=== PATIENT | male | born 1990 | race Caucasian/White ===

== ENCOUNTER 2017-02-27 13:30 | Emergency (ER) | payer MEDICAID ==
[~2017-02-27] VITALS: Ht 162.6 cm; Wt 79.9 kg
[2017-02-27 13:41] VITALS: Ht 162.6 cm; Wt 79.9 kg
--- NOTE | 2017-02-27 14:05 | ERD ---
ER Documentation Chief Complaint Chief Complaint Pt presents with R back and R leg pain after fall from roof, apx 12 feet. (NICOLLE ANGUIANO PA-C) HPI Otherwise healthy 26-year-old male presenting 8 hour status post fall from height onto his back. Patient claims he hit a brick ledge on his way down. Denies head trauma, neck pain, mid back pain, or injury to other areas of the body. Has not taken any medications to relieve symptoms. States he has mild numbness on the outer right lower extremity. Denies loss of range of motion in his extremities. Back pain 12/07. Patient has no other complaints and describes no other associated manifestations. (NICOLLE ANGUIANO PA-C) ROS All systems reviewed and are negative except as per history of present illness. (NICOLLE ANGUIANO PA-C) Medications Home Meds Active Scripts Hydrocodone/Acetaminophen (Racine 5-325 Tablet) 1 Each Tablet, 1 TAB PO Q6H Y for PAIN, #20 TAB Prov:NICOLLE ANGUIANO PA-C 02/27/17 Reported Medications [None] No Conflict Check 03/30/10 Allergies Allergies: Coded Allergies: No Known Allergies (Verified Allergy, Mild, 03/30/10) PMhx/Soc History of Surgery: No Anesthesia Reaction: No Hx Neurological Disorder: No Hx Respiratory Disorders: No Hx Cardiac Disorders: No Hx Psychiatric Problems: No Hx Miscellaneous Medical Probl: No Hx Alcohol Use: No Hx Substance Use: No Hx Tobacco Use: No (NICOLLE ANGUIANO PA-C) Physical Exam Vitals Vital Signs Date Time Temp Pulse Resp B/P Pulse Ox O2 Delivery O2 Flow Rate FiO2 02/27/17 13:41 97.9 83 20 131/75 98 (FARRUKH SALAZAR MD) Physical Exam Const: Well-appearing. Mild distress. Back: No midline, flank or CVA tenderness. Negative straight leg raise. Tenderness to the right of the spine. Range of motion decreased secondary to pain. Neur: No saddle anesthesia. Neurovascularly intact bilaterally in all nerve distributions. Patella reflex 2+ bilaterally. Ankle reflex unobtainable. Eyes: Non-injected; No discharge. EOMI and ALYCE bilaterally. Neck: No tenderness. No cervical lymphadenopathy, or masses palpated. Supple ~ No meningismus. Pulm: Good air movement in upper and lower respiratory tracts. Clear to auscultation bilaterally. No dyspnea or stridor. Cardio: Regular rate and rhythm; No murmurs, gallops or rubs auscultated. Radia pulses 2+ bilaterally. No cyanosis noted. Capillary refill less than 2 seconds. Abd: Normal bowel sounds. No palpable mass. MS: Normal motor strength, normal tone with gross examination. Skin: No petechiae or rashes. Good turgor. Psych: Normal Mood and Affect. (NICOLLE ANGUIANO PA-C) Results 24 hrs Current Medications Medications (Trade) Dose Ordered Sig/Fly Route PRN Reason Start Time Stop Time Status Last Admin Dose Admin Acetaminophen/ Hydrocodone Bitart (Racine (5/325)) 1 tab ONCE ONCE PO 02/27/17 14:30 02/27/17 14:31 DC 02/27/17 14:14 Morphine Sulfate (morphine) 4 mg ONCE STAT IV 02/27/17 15:59 02/27/17 16:00 DC 02/27/17 16:18 Ondansetron HCl (Zofran Odt) 4 mg ONCE STAT ODT 02/27/17 15:59 02/27/17 16:00 DC 02/27/17 16:19 (FARRUKH SALAZAR MD) Procedures/MDM Otherwise healthy 26-year-old male presents 8 hours status post a fall from height. Approximately [address] requirement [address] down. Complains of lower back pain with possible right numbness. Physical exam shows neurovascularly intact. CT was obtained of the lower lumbar spine to rule out bony pathology. CT was read by the radiologist given the following impression: FINDINGS: Acute mildly displaced fractures of the right transverse processes of T12, L1, L2, and 3 vertebral bodies are noted. There is maintenance of normal lumbar lordosis. No lumbar spine subluxation is noted. The vertebral body heights are preserved. There is no significant paravertebral soft tissues swelling or mass. T12-L1: The disk is normal in height. No significant disk bulge or protrusion is seen. The central canal and neural foramina appear adequately patent. L1-L2: The disk is normal in height. No significant disk bulge or protrusion is seen. The central canal and neural foramina appear adequately patent. L2-L3: The disk is normal in height. Mild diffuse disc bulge is seen. The central canal and neural foramina appear adequately patent. L3-L4: The disk is normal in height. Mild diffuse disc bulge is seen. The central canal and neural foramina appear adequately patent. L4-L5: The disk is normal in height. Mild central disc protrusion is seen. Mild bilateral facet arthropathy is noted. Mild to moderate left and mild right foraminal narrowing is noted. The central canal appears adequately patent. L5-S1: The disk is normal in height. Mild diffuse disc bulge is seen. Mild bilateral facet arthropathy is noted. Mild to moderate right and mild left foraminal narrowing is noted. The central canal appears adequately patent. Bilateral sacroiliac joints demonstrate subchondral sclerosis with prominent osteophytes on the right. IMPRESSION: 1. Acute mildly displaced fractures of the right transverse processes of T12, L1, L2, and 3 vertebral bodies. 2. No acute lumbar spine compression fracture or subluxation. 3. Mild to moderate bilateral foraminal narrowing at L4-5 and L5-S1. X-ray was obtained of the chest. Read by the radiologist given the following impression: Unremarkable Presents of the case to my attending. Dr. Rojas with neurosurgery was consulted. Patient handed off to carry Gulshan BRAGG (NICOLLE ANGUIANO PA-C) Case discussed with Dr. Farmer, neurosurgery, who reviewed the studies.. Patient presents with signs of transverse process fractures of lumbar spine after falling from a roof and hitting a wall. Does not see any evidence of vertebral body fractures. Patient has no current neurologic deficits, signs of additional injury. Patient patient's treatment is nonoperative according to neurosurgery. Patient is placed in a lumbar support will be treated for pain at home with instructions for primary care follow-up, outpatient specialty follow-up and return precautions. (FARRUKH SALAZAR MD) Departure Diagnosis: Primary Impression: Injury of back Encounter type: initial encounter Qualified Code: S39.92XA - Injury of back , initial encounter Additional Impressions: Back pain Back pain location: low back pain Chronicity: acute Back pain laterality: right Sciatica presence: without sciatica Qualified Code: M54.5 - Acute right-sided low back pain without sciatica Fall from height of greater than 3 feet Condition: Stable NICOLLE ANGUIANO PA-C Feb 27, 2017 14:05 FARRUKH SALAZAR MD Feb 27, 2017 16:46
[2017-02-27] MEDS ORDERED: HYDROCODONE/APAP (5/325) TAB PO ONE (14:30)
--- NOTE | 2017-02-27 14:41 | RADRPT ---
PROCEDURE: Chest x-ray CLINICAL INDICATION: Chest pain TECHNIQUE: Chest single view COMPARISON: None FINDINGS: The heart is normal in size. The pulmonary vessels are normal in caliber. The lungs are clear. Th e costophrenic angles are sharp. The visualized bony thorax is unremarkable. IMPRESSION: No acute cardiopulmonary disease. No evidence of pneumothorax RPTAT: HH .Chance Kirk MD, Date Time Electronically viewed and signed by .Chance Kirk MD, MD on 02/27/2017 14:41 .W/
[2017-02-27] MEDS ORDERED: HYDR-906 PO (15:10)
--- NOTE | 2017-02-27 15:30 | RADRPT ---
PROCEDURE: CT Lumbar Spine. CLINICAL INDICATION: Fall. Low back pain TECHNIQUE: The study was performed on a multidetector CT scanner. Volumetric data was obtained th rough the lumbar spine and reformatted in the axial plane. Sagittal and coronal reformations were cr eated from the raw axial data. One or more the following does reduction techniques were utilized: Au tomated exposure control, adjustment of the mA/ or kV according to patient's size, or use of iterati ve reconstruction technique. The images were reviewed on a PACS workstation. CTDI 14.79 mGy. DLP 385.78 mGy-cm. DICOM images are available. COMPARISON: No prior studies are available for comparison. FINDINGS: Acute mildly displaced fractures of the right transverse processes of T12, L1, L2, and 3 vertebral b odies are noted. There is maintenance of normal lumbar lordosis. No lumbar spine subluxation is noted. The vertebral body heights are preserved. There is no significant paravertebral soft tissues swelling or mass. T12-L1: The disk is normal in height. No significant disk bulge or protrusion is seen. The central canal and neural foramina appear adequately patent. L1-L2: The disk is normal in height. No significant disk bulge or protrusion is seen. The central c anal and neural foramina appear adequately patent. L2-L3: The disk is normal in height. Mild diffuse disc bulge is seen. The central canal and neural foramina appear adequately patent. L3-L4: The disk is normal in height. Mild diffuse disc bulge is seen. The central canal and neural f oramina appear adequately patent. L4-L5: The disk is normal in height. Mild central disc protrusion is seen. Mild bilateral facet art hropathy is noted. Mild to moderate left and mild right foraminal narrowing is noted. The central ca nal appears adequately patent. L5-S1: The disk is normal in height. Mild diffuse disc bulge is seen. Mild bilateral facet arthropa thy is noted. Mild to moderate right and mild left foraminal narrowing is noted. The central canal a ppears adequately patent. Bilateral sacroiliac joints demonstrate subchondral sclerosis with prominent osteophytes on the righ t. IMPRESSION: 1. Acute mildly displaced fractures of the right transverse processes of T12, L1, L2, and 3 vertebr al bodies. 2. No acute lumbar spine compression fracture or subluxation. 3. Mild to moderate bilateral foraminal narrowing at L4-5 and L5-S1. RPTAT: HH .Nikolai Cabrales MD, MD Date Time Electronically viewed and signed by .Nikolai Cabrales MD, MD on 02/27/2017 15:30 .N/
[2017-02-27] MEDS ORDERED: morphine 4 MG/ML VIAL IV STA (15:59)
[2017-02-27] MEDS ORDERED: ONDANSETRON (ODT) 4 MG TAB ODT STA (15:59)
== END 2017-02-27 17:24 | disposition home or self-care (01) ==
LOC: FTE 13:30
DX: S39.92XA Unspecified injury of lower back, initial encounter (principal); W17.89XA Other fall from one level to another, initial encounter; Y92.9 Unspecified place or not applicable
CPT/HCPCS: 71010; 72131; 96374; J2270; Z7502; Z7610